=== PATIENT | female | born 1965 | race Caucasian/White ===

== ENCOUNTER 2019-01-15 14:46 | Emergency (ER) | payer MEDICAID ==
[~2019-01-15] VITALS: Ht 152.4 cm; Wt 68.5 kg
[2019-01-15 15:09] VITALS: Ht 152.4 cm; Wt 68.5 kg
[2019-01-15 16:17] LABS: UA SPECIFIC GRAVITY <=1.005 (1.005-1.035); microscopic required? YES; urine erythrocyte TRACE (NEGATIVE)
[2019-01-15 16:30] VITALS: BP 130/71
== END 2019-01-15 16:30 | disposition home or self-care (01) ==
LOC: ED 14:46
PROVIDERS: Emergency Medicine
DX: N39.0 Urinary tract infection, site not specified (principal)
CPT/HCPCS: J0696

== ENCOUNTER 2019-02-26 15:15 | Emergency (ER) | payer MEDICAID ==
[~2019-02-26] VITALS: Ht 157.5 cm; Wt 67.1 kg
[2019-02-26 15:42] VITALS: BP 129/79; Ht 157.5 cm; Wt 67.1 kg
== END 2019-02-26 17:11 | disposition home or self-care (01) ==
LOC: ED 15:15
DX: B37.3 Candidiasis of vulva and vagina (principal)